=== PATIENT | male | born 1940 | race Caucasian/White ===

== ENCOUNTER 2020-02-12 12:10 | Emergency (ER) | payer OTHER, BC ==
[~2020-02-12] VITALS: Ht 172.7 cm; Wt 90.7 kg
[2020-02-12 12:10] VITALS: BP_SYST 137
[2020-02-12] MEDS ORDERED: RIVA20TA PO (13:01)
[2020-02-12] MEDS ORDERED: MULT-1117 PO (13:01)
[2020-02-12] MEDS ORDERED: COR6.25 PO (13:01)
[2020-02-12] MEDS ORDERED: OLAN5TAB3 PO (13:01)
[2020-02-12] MEDS ORDERED: POTA20TA83 PO (13:01)
[2020-02-12] MEDS ORDERED: ASPI-1155 PO (13:01)
[2020-02-12] MEDS ORDERED: PRO40 PO (13:01)
[2020-02-12] MEDS ORDERED: PREG75CA PO (13:01)
[2020-02-12] MEDS ORDERED: AMLO2.5T2 PO (13:01)
[2020-02-12] MEDS ORDERED: FURO-149 PO (13:01)
[2020-02-12] MEDS ORDERED: DIVA-74 PO (13:01)
[2020-02-12] MEDS ORDERED: ATOR40TA68 PO (13:01)
[2020-02-12] MEDS ORDERED: OLAN10TA3 PO (13:01)
[2020-02-12] MEDS ORDERED: LISI10TA5 PO (13:01)
[2020-02-12 13:09] LABS: BILIRUBIN,URINE NEGATIVE (NEGATIVE); BLOOD, URINE NEGATIVE (NEGATIVE); CLARITY/URINE CLEAR (CLEAR); COLOR,URINE YELLOW (YELLOW); GLUCOSE,URINE NEGATIVE (NEGATIVE); KETONES,URINE NEGATIVE (NEGATIVE); LEUKOCYTE ESTERASE ,URINE NEGATIVE (NEGATIVE); NITRITE, URINE NEGATIVE (NEGATIVE); PH,URINE 6.5 (5.0-8.0); PROTEIN URINE NEGATIVE (NEGATIVE); UROBILINOGEN,URINE 0.2 (0.2-1.0)
[2020-02-12 13:15] LABS: BASOPHILS % (AUTO) 0.5 % (0.0-2.0); EOSINOPHILS # (AUTO) 0.4 K/uL (0.0-0.4); EOSINOPHILS % (AUTO) 4.1 % (0.0-4.0); HEMATOCRIT 34.7 % (36-54); HEMOGLOBIN 11.4 g/dL (14.0-18.0); LYMPHOCYTES # (AUTO) 1.6 K/uL (1.0-5.5); LYMPHOCYTES % (AUTO) 17.9 % (20.5-51.5); MEAN CORPUSCULAR HEMOGLOBIN 31 pg (27-31); MEAN CORPUSCULAR HGB CONC 33 % (32-36); MEAN CORPUSCULAR VOLUME 93 fL (79.0-98.0); MONOCYTES # (AUTO) 1.4 K/uL (0.0-1.0); MONOCYTES % (AUTO) 15.8 % (1.7-9.3); NEUTROPHILS # (AUTO) 5.5 K/uL (1.8-7.7); NEUTROPHILS % (AUTO) 61.7 % (40.0-70.0); PLATELET COUNT (AUTO) 135 K/uL (130-430); RED BLOOD CELL COUNT(AUTO) 3.72 MIL/uL (4.2-6.2); RED CELL DISTRIBUTION WIDTH 14.9 % (9.0-15.0); WHITE BLOOD COUNT (AUTO) 8.9 K/uL (4.8-10.8)
[2020-02-12 13:24] LABS: BARBITURATE, URINE NEGATIVE (NEG <=200); BENZODIAZEPINE, URINE NEGATIVE (NEG <=150); CANNABINOID, URINE NEGATIVE (NEG <=50); COCAINE, URINE NEGATIVE (NEG <=150); METHAMPHETAMINES SCREEN,URINE NEGATIVE (NEG <=500); OPIATE, URINE NEGATIVE (NEG <=100); PHENCYCLIDINE SCREEN,URINE NEGATIVE (NEG <=25); UR TRICYCLIC ANTIDEPRESSANTS NEGATIVE (NEG <=300); URINE AMPHETAMINE NEGATIVE (NEG <=500); URINE METHADONE NEGATIVE (NEG <=200); URINE OXYCODONE SCREEN NEGATIVE (NEG <=100); URINE PROPOXYPHENE SCREEN NEGATIVE (NEG <=300)
[2020-02-12 13:25] LABS: INR 1.1 (0.80-1.20); PROTHROMBIN TIME 11.2 SECS (9.5-12.5)
[2020-02-12 13:27] LABS: ANION GAP 3 (5-15); CALCIUM 8.6 mg/dL (8.4-11.0); CHLORIDE 98 mmol/L (98-107); CREATININE 1.08 mg/dL (0.55-1.30); GLUCOSE 92 mg/dL (70-99); POTASSIUM 4.6 mmol/L (3.5-5.1); SODIUM SERUM 136 mmol/L (136-145); UREA NITROGEN, BLOOD 19 mg/dL (8-21)
[2020-02-12 13:38] LABS: ALANINE AMINOTRANSFERASE 22 U/L (12-78); ALBUMIN 3.1 g/dL (3.4-4.8); ASPARTATE AMINOTRANSFERASE 20 U/L (10-37); FREE T4 (FREE THYROXINE) 1.1 ng/dl (0.8-1.5); TOTAL BILIRUBIN 0.8 mg/dL (0.0-1.0)
[2020-02-12 13:40] LABS: ALCOHOL, BLOOD < 3 mg/dL (<10)
[2020-02-12 14:13] LABS: VALPROIC ACID 45 ug/mL (50-100)
[2020-02-12] MEDS ORDERED: MAGNESIUM CITRATE 300 ML ORAL SOLUTION PO ONE (15:00)
[2020-02-12 16:09] VITALS: BP_SYST 137
== END 2020-02-12 16:10 | disposition home or self-care (01) ==
LOC: SED 12:10
DX: K59.39 Other megacolon (principal); N28.1 Cyst of kidney, acquired; Z95.0 Presence of cardiac pacemaker; Z79.82 Long term (current) use of aspirin; Z79.899 Other long term (current) drug therapy
CPT/HCPCS: 36415; 71045; 74018; 74176; 80053; 80164; 80307; 81003; 82140; 83605; 83880; 84439; 84484; 85025; 85610; 87040; 93005; 99285; G0482